=== PATIENT | male | born 1980 | race Caucasian/White ===

== ENCOUNTER 2017-04-11 07:34 | Emergency (ER) | payer OTHER ==
[~2017-04-11] VITALS: Ht 175.3 cm; Wt 74.8 kg
--- NOTE | 2017-04-11 08:23 | RAD ---
Indication: Chest pain for one day. Technique: Two-view chest radiograph was obtained. No comparison is available. Findings: The lungs are clear. The cardiopulmonary silhouette is within normal limits. There is no pleural effusion. The bony structures are intact. Leads overlie the patient. Impression: No acute thoracic findings.
[2017-04-11 08:31] LABS: BASO % 1 % (0-3); EOS % 1 % (0-3); HEMATOCRIT 46.1 % (39.0-53.0); LYMPH # 1.6 x10^3/uL (1.0-4.8); LYMPH % 27 % (24-48); MEAN CORPUSCULAR HEMOGLOBIN 31 pg (25-35); MEAN CORPUSCULAR HGB CONC 35 g/dL (31-37); MEAN CORPUSCULAR VOLUME 90 fL (79-100); MONO # 0.5 x10^3/uL (0.0-1.1); MONO % 8 % (0-9); NEUT # 3.7 x10^3uL (1.8-7.7); NEUT % 63 % (31-73); PLATELET COUNT 184 x10^3/uL (140-400); RED BLOOD COUNT 5.14 x10^6/uL (4.30-5.70); RED CELL DISTRIBUTION WIDTH 12.5 % (11.5-14.5); WHITE BLOOD COUNT 5.8 x10^3/uL (4.0-11.0)
--- NOTE | 2017-04-11 08:31 | PHYS DOC ---
Past History Past Medical History: Other Past Surgical History: Tonsillectomy Additional Smoking Information: CHEWS TOBACCO Alcohol Use: Occasionally Drug Use: None Adult General Chief Complaint Chief Complaint: CHEST PAIN HPI HPI Patient is a 36-year-old male who presents to the ED complaining of pain located in the center of his lower chest or epigastric area. It's been intermittent for about a week and constant since yesterday morning. It bothered him all day yesterday, it was there when he went to sleep last night and it was there when he woke up this morning. It seems to be relieved by laying on his stomach but not by anything else. He never had it before the past week. It feels a little bit like heartburn but does not have any associated reflux of stomach acid that he has had before with heartburn. He has not taken anything for it. He has Tums in his pocket but has not taken them. He has not had history of GI issues. He's never taken a medication for her stomach acid. During the past week while he's had the pain it has not been affected by eating although it may be worse when his stomach is empty. It has not been affected by exercise. At its worst it has been "very uncomfortable" but has not been associated with nausea, diaphoresis, or shortness of air. It has not limited his activity. 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 Patient is a nonsmoker. He has had some elevated blood pressures but not significantly elevated and has not been treated for that. No diabetes, no elevated cholesterol, no family history of heart attacks. Patient states he's been under a lot of stress lately. 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 He has a move coming up to [place] in 2 weeks. His ex- PCS to overseas and his older child went with her. Patient has also been evaluated for episodes of "head pressure" that he had a CT scan and MRI for and has been characterized as possible stress. He was prescribed clonazepam 1 mg twice a day when necessary, he actually takes one half tablet maybe once a day, he got the prescription more than 90 days ago and still has some left. He did take one this morning. Review of Systems Review of Systems Constitutional: Denies fever or chills [] Eyes: Denies change in visual acuity, redness, or eye pain [] HENT: Denies nasal congestion or sore throat [] Respiratory: Denies cough or shortness of breath [] Cardiovascular: As in history of present illness GI: Denies abdominal pain, nausea, vomiting, bloody or black stools or diarrhea . He did have more stools than usual yesterday but they were not liquid. : Denies dysuria or hematuria [] Musculoskeletal: He has had some intermittent episodes of skin tingling and occasional 1 second sharp shooting pains radiating from his left mid back around to his left front lower chest, someone told him it might be shingles but he never did get a rash, it has been intermittent for some time now but the sharp pains, when they occur, last 1 second Integument: Denies rash or skin lesions [] Neurologic: As in history of present illness for episodes of head pressure that have been worked up Allergies Allergies Allergies Coded Allergies Type Severity Reaction Last Updated Verified No Known Drug Allergies 04/11/17 No Physical Exam Physical Exam Constitutional: Well developed, well nourished, no acute distress, non-toxic appearance. Alert, mentating normally. Blood pressure slightly elevated in the 140s over 97 range, heart rate 68 HENT: Normocephalic, atraumatic, bilateral external ears normal, nose normal. [] Eyes: conjunctiva normal, no discharge. [] Neck: Normal range of motion, no stridor. [] Cardiovascular:Heart rate regular rhythm, no murmur [] Lungs & Thorax: Bilateral breath sounds clear to auscultation [] Abdomen: Bowel sounds normal, soft, no tenderness, no masses, no pulsatile masses. [] Skin: Warm, dry, no erythema, no rash. [] Back: No tenderness, no CVA tenderness. [] Extremities: No tenderness, no cyanosis, no clubbing, ROM intact, no edema. [] Neurologic: Alert and oriented X 3, normal motor function, normal sensory function, no focal deficits noted. [] Current Patient Data Vital Signs Vital Signs Date Time Temp Pulse Resp B/P (MAP) Pulse Ox O2 Delivery O2 Flow Rate FiO2 04/11/17 07:40 98.1 79 18 98 Room Air EKG EKG 12-lead EKG read by me. Sinus rhythm. Heart rate 66. There are no ST elevations or depressions. There is T-wave inversion in leads 3, aVF, and V5 and V6. It is a morbidly nonspecific flattening/nonspecific mild inversion compared to any deep or symmetrical inversion. However it is concerning for possible inferior ischemia. There is no previous EKG available in the patient's record here for comparison. No STEMI. 0745[] Radiology/Procedures Radiology/Procedures Chest x-ray read by the radiologist is normal. [] Course & Med Decision Making Course & Med Decision Making Pertinent Labs and Imaging studies reviewed. (See chart for details) 36-year-old male without significant cardiac risk factors presents to the ED with a one-week history of intermittent epigastric pain, more constant for about 24 hours. The pain does not have typical cardiac features. However, initial EKG does show some inferior T-wave inversion. I discussed with the patient that we will get some further tests and he is agreeable to that plan. 09 recheck patient. He has been resting comfortably. 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 Patient states that his pain has improved and now is gone since he has been relaxing in the ED. He did not have any treatment prior to the pain resolving. Troponin is slightly elevated. I feel that the patient requires admission for serial troponins and cardiology evaluation. Discussed this with the patient. He will be given an aspirin and also a dose of Protonix. I believe the symptoms may be GI/acid if not cardiac. I discussed the case with Dr. Donahue, hospital medicine at [facility], who will accept the patient for transfer to [place]. Transfer paperwork was completed. I discussed this with the patient who is agreeable. The patient will be transferred by EMS to an inpatient bed at [place]. [] Dragon Disclaimer Dragon Disclaimer This chart was dictated in whole or in part using Voice Recognition software in a busy, high-work load, and often noisy Emergency Department environment. It may contain unintended and wholly unrecognized errors or omissions. Departure Departure: Impression: Primary Impression: Chest pain of uncertain etiology Additional Impression: Elevated troponin Disposition: 02 XFER SHT-TRM HOSP Condition: STABLE Referrals: LISSA BENSON DO (PCP) Problem Qualifiers CHHAYA CANTOR MD April 11, 2017 08:31
[2017-04-11 09:02] LABS: ALBUMIN 4.2 g/dL (3.4-5.0); ALBUMIN/GLOBULIN RATIO 1.3 (1.0-1.7); ALK PHOS 72 U/L (46-116); ALT (SGPT) 32 U/L (16-63); ANION GAP 8 (6-14); AST (SGOT) 18 U/L (15-37); BLOOD UREA NITROGEN 13 mg/dL (8-26); BUN/CREATININE RATIO 13 (6-20); CALCIUM 9.2 mg/dL (8.5-10.1); CARBON DIOXIDE 29 mmol/L (21-32); CHLORIDE 104 mmol/L (98-107); CREATINE KINASE 87 U/L (39-308); GFR 84.5; GLUCOSE 99 mg/dL (70-99); LIPASE 110 U/L (73-393); MAGNESIUM 2.2 mg/dL (1.8-2.4); POTASSIUM 4.3 mmol/L (3.5-5.1); SODIUM 141 mmol/L (136-145); TOTAL BILIRUBIN 0.5 mg/dL (0.2-1.0); TOTAL PROTEIN 7.5 g/dL (6.4-8.2)
[2017-04-11] MEDS ORDERED: ASPIRIN ENTERIC COATED 81 MG TABLET.DR. PO ONE (09:21)
[2017-04-11] MEDS ORDERED: ASPIRIN 81 MG TAB.CHEW PO ONE (09:30)
[2017-04-11] MEDS ORDERED: PANTOPRAZOLE 40 MG TABLET. PO ONE (09:30)
[2017-04-11 10:10] VITALS: BP 137/89
--- NOTE | 2017-04-11 10:18 | EKG ---
[address] [address] Test Date: 2017-04-11 Test Time: 07:44:12 Pat Name: JAXON BIRD Department: Room: Gender: M Visual Specialist: TABITHA : 1980 Requested By: CHHAYA CANTOR Order Number: [id number] Reading MD: Measurements Intervals [place] Rate: 66 P: 52 NH: 150 QRS: 66 QRSD: 88 T: -11 QT: 350 QTc: 368 Interpretive Statements SINUS RHYTHM OTHERWISE NORMAL ECG RI6.01 Unconfirmed report No previous ECG available for comparison
== END 2017-04-11 10:22 | disposition short-term general hospital (02) ==
LOC: ER 07:34
DX: R07.89 Other chest pain (principal); R79.89 Other specified abnormal findings of blood chemistry; F17.220 Nicotine dependence, chewing tobacco, uncomplicated
CPT/HCPCS: 36415; 71020; 80053; 82553; 83690; 83735; 83880; 84484; 85027; 93005; 99285-25